=== PATIENT | female | born 1995 | race Caucasian/White ===

== ENCOUNTER 2018-05-19 10:34 | Emergency (ER) | payer OTHER ==
[~2018-05-19] VITALS: Ht 170.2 cm; Wt 55.8 kg
[2018-05-19 11:28] LABS: BASO # 0.1 x10^3/uL (0.0-0.2); BASO % 1 % (0-3); EOS # 0.1 x10^3/uL (0.0-0.7); EOS % 1 % (0-3); HEMATOCRIT 43.1 % (36.0-47.0); HEMOGLOBIN 14.6 g/dL (12.0-15.5); LYMPH # 2.3 x10^3/uL (1.0-4.8); LYMPH % 26 % (24-48); MEAN CORPUSCULAR HEMOGLOBIN 27 pg (25-35); MEAN CORPUSCULAR HGB CONC 34 g/dL (31-37); MEAN CORPUSCULAR VOLUME 79 fL (79-100); MONO # 0.6 x10^3/uL (0.0-1.1); MONO % 7 % (0-9); NEUT # 5.7 x10^3uL (1.8-7.7); NEUT % 65 % (31-73); PLATELET COUNT 278 x10^3/uL (140-400); RED BLOOD COUNT 5.47 x10^6/uL (3.50-5.40); RED CELL DISTRIBUTION WIDTH 15.3 % (11.5-14.5); WHITE BLOOD COUNT 8.9 x10^3/uL (4.0-11.0)
[2018-05-19 11:37] LABS: CALCIUM 9.1 mg/dL (8.5-10.1); CREATININE 0.5 mg/dL (0.6-1.0); GFR 155.7; MAGNESIUM 1.9 mg/dL (1.8-2.4); POTASSIUM 3.8 mmol/L (3.5-5.1)
[2018-05-19 12:21] LABS: BACTERIA,URINE MOD /HPF (0-FEW); BILIRUBIN,URINE NEG (NEG); CLARITY,URINE HAZY; COLOR,URINE YELLOW; GLUCOSE,URINE NEG (NEG); NITRITE,URINE NEG (NEG); UROBILINOGEN,URINE 0.2 mg/dL (0.2 mg/dL); WBC,URINE OCC /HPF (0-4)
[2018-05-19 12:22] LABS: SQUAMOUS EPITHELIAL CELL,UR MANY /LPF
--- NOTE | 2018-05-19 12:49 | RAD ---
EXAM: Obstetrics sonogram. HISTORY: Right adnexal pain. TECHNIQUE: Transabdominal and transvaginal sonographic imaging of the pelvis was performed. COMPARISON: None. FINDINGS: The uterus measures 8.3 x 4.7 x 3.8 cm. The uterus is retroverted. The endometrial stripe measures 10 mm in thickness. No intrauterine gestational sac is seen. The ovaries are normal in size and demonstrate normal blood flow. There is a 1.7 cm left ovarian follicular cyst. There is a suspected 1.2 cm complex right ovarian cyst, possibly a corpus luteum cyst. There is an ill-defined hypoechoic region adjacent to the right ovary. No free fluid is seen in this location. IMPRESSION: 1. No evidence of an intrauterine gestational sac. This is not expected at the reported beta hCG level of 220. There is an ill-defined small hypoechoic region adjacent to the right ovary. This is not typical in appearance for ectopic gestation. However, if there is clinical concern for ectopic gestation, correlation with serial beta hCG levels and short-term sonographic follow-up is recommended. 2. Small bilateral follicular cysts, one of which on the right it is slightly complex and may be a corpus luteum cyst. Electronically signed by: Viri Madsen MD (05/19/2018 12:45 PM) [id number]
[2018-05-19] MEDS ORDERED: PREN-2 PO (12:59)
--- NOTE | 2018-05-19 12:59 | PHYS DOC ---
Past History Past Medical History: No Pertinent History Past Surgical History: No Surgical History Smoking: Non-smoker Alcohol Use: None Drug Use: None Adult General Chief Complaint Chief Complaint: ABDOMINAL PAIN IN HPI HPI 22-year-old female presents with recent diagnosis of with report of increased right lower pelvic pain with associated vaginal bleeding/discharge. Patient reports 3 days ago she noticed some dark discharge. Patient was seen by PCP at [facility] with positive test. Patient denies trauma. Denies fever or chills. Patient reports last menstrual period approximately 6 weeks ago. Denies prior . Patient reports reading about spotting in and decided to present to the ER for further evaluation. Review of Systems Review of Systems Constitutional: Denies fever or chills [] Eyes: Denies change in visual acuity, redness, or eye pain [] HENT: Denies nasal congestion or sore throat [] Respiratory: Denies cough or shortness of breath [] Cardiovascular: Denies chest pain or palpitations GI: Right right lower abdominal pain; denies nausea, vomiting, or diarrhea [] : Denies dysuria or hematuria [] FOOD SAFETY SCIENTIST: with vaginal bleeding and "dark discharge" Musculoskeletal: Denies back pain or joint pain [] Integument: Denies rash or skin lesions [] Neurologic: Denies headache, focal weakness or sensory changes [] Complete systems were reviewed and found to be within normal limits, except as documented in this note. Allergies Allergies Allergies Coded Allergies Type Severity Reaction Last Updated Verified No Known Drug Allergies 05/19/18 No Physical Exam Physical Exam Constitutional: Well developed, well nourished, no acute distress, non-toxic appearance. [] HENT: Normocephalic, atraumatic, oropharynx moist Eyes: Conjunctiva normal, no discharge. [] Neck: Normal range of motion, no tenderness, supple, no stridor. [] Cardiovascular: Heart rate regular rhythm, no murmur [] Lungs & Thorax: Bilateral breath sounds clear to auscultation [] Abdomen: Soft, RLQ tenderness, negative McBurney point [] FOOD SAFETY SCIENTIST: Chaperoned RN, external genitalia normal, no CMT, moderate amount of blood and clot noted in vaginal vault, adnexal tenderness to palpation on right Skin: Warm, dry, no erythema, no rash. [] Back: No tenderness, no CVA tenderness. [] Extremities: No tenderness, ROM intact, no edema. [] Neurologic: Alert and oriented X 3, normal motor function, normal sensory function, no focal deficits noted. [] Psychologic: Affect normal, judgement normal, mood normal. [] Current Patient Data Vital Signs Vital Signs Date Time Temp Pulse Resp B/P (MAP) Pulse Ox O2 Delivery O2 Flow Rate FiO2 05/19/18 12:28 90 18 130/76 (94) 99 Room Air 05/19/18 10:46 98.1 Lab Results Laboratory Tests Test 05/19/18 11:12 05/19/18 11:43 White Blood Count 8.9 x10^3/uL (4.0-11.0) Red Blood Count 5.47 x10^6/uL (3.50-5.40) H Hemoglobin 14.6 g/dL (12.0-15.5) Hematocrit 43.1 % (36.0-47.0) Mean Corpuscular Volume 79 fL (79-100) Mean Corpuscular Hemoglobin 27 pg (25-35) Mean Corpuscular Hemoglobin Concent 34 g/dL (31-37) Red Cell Distribution Width 15.3 % (11.5-14.5) H Platelet Count 278 x10^3/uL (140-400) Neutrophils (%) (Auto) 65 % (31-73) Lymphocytes (%) (Auto) 26 % (24-48) Monocytes (%) (Auto) 7 % (0-9) Eosinophils (%) (Auto) 1 % (0-3) Basophils (%) (Auto) 1 % (0-3) Neutrophils # (Auto) 5.7 x10^3uL (1.8-7.7) Lymphocytes # (Auto) 2.3 x10^3/uL (1.0-4.8) Monocytes # (Auto) 0.6 x10^3/uL (0.0-1.1) Eosinophils # (Auto) 0.1 x10^3/uL (0.0-0.7) Basophils # (Auto) 0.1 x10^3/uL (0.0-0.2) Maternal Serum HCG Beta Subunit 220 mIU/mL (0-6) H Sodium Level 142 mmol/L (136-145) Potassium Level 3.8 mmol/L (3.5-5.1) Chloride Level 105 mmol/L (98-107) Carbon Dioxide Level 26 mmol/L (21-32) Anion Gap 11 (6-14) Blood Urea Nitrogen 9 mg/dL (7-20) Creatinine 0.5 mg/dL (0.6-1.0) L Estimated GFR (Cockcroft-Gault) 155.7 Glucose Level 86 mg/dL (70-99) Calcium Level 9.1 mg/dL (8.5-10.1) Magnesium Level 1.9 mg/dL (1.8-2.4) Urine Collection Type Unknown Urine Color Yellow Urine Clarity Hazy Urine pH 7.0 Urine Specific [place] 1.015 Urine Protein Neg (NEG-TRACE) Urine Glucose (UA) Neg mg/dL (NEG) Urine Ketones (Stick) Neg mg/dL (NEG) Urine Blood Large (NEG) Urine Nitrite Neg (NEG) Urine Bilirubin Neg (NEG) Urine Urobilinogen Dipstick 0.2 mg/dL (0.2 mg/dL) Urine Leukocyte Esterase Neg (NEG) Urine RBC 3-5 /HPF (0-2) Urine WBC Occ /HPF (0-4) Urine Squamous Epithelial Cells Many /LPF Urine Bacteria Mod /HPF (0-FEW) Urine Mucus Marked /LPF EKG EKG [] Radiology/Procedures Radiology/Procedures PROCEDURE: OB <14 WKS W/TV EXAM: Obstetrics sonogram. HISTORY: Right adnexal pain. TECHNIQUE: Transabdominal and transvaginal sonographic imaging of the pelvis was performed. COMPARISON: None. FINDINGS: The uterus measures 8.3 x 4.7 x 3.8 cm. The uterus is retroverted. The endometrial stripe measures 10 mm in thickness. No intrauterine gestational sac is seen. The ovaries are normal in size and demonstrate normal blood flow. There is a 1.7 cm left ovarian follicular cyst. There is a suspected 1.2 cm complex right ovarian cyst, possibly a corpus luteum cyst. There is an ill-defined hypoechoic region adjacent to the right ovary. No free fluid is seen in this location. IMPRESSION: 1. No evidence of an intrauterine gestational sac. This is not expected at the reported beta hCG level of 220. There is an ill-defined small hypoechoic region adjacent to the right ovary. This is not typical in appearance for ectopic gestation. However, if there is clinical concern for ectopic gestation, correlation with serial beta hCG levels and short-term sonographic follow-up is recommended. 2. Small bilateral follicular cysts, one of which on the right it is slightly complex and may be a corpus luteum cyst. Electronically signed by: Viri Madsen MD (05/19/2018 12:45 PM) [facility] Course & Med Decision Making Course & Med Decision Making Pertinent Labs and Imaging studies reviewed. (See chart for details) Patient presents with abdominal pain in with vaginal bleeding. Patient is a . Reports previously having some "dark discharge ". Patient denies concern for STDs. Pelvic exam performed with chlamydia and gonorrhea cultures pending. Wet mount negative. Labs obtained and posted to chart. Beta- HCG 200. Patient is Rh+. Ultrasound obtained without findings of intrauterine gestation. Hypo-echoic area noted to right adnexa. Cannot fully exclude ectopic . Patient given copy of CT results including beta-HCG level and Rh factor. Patient to follow with her PCP/CONTINUING EDUCATION INSTRUCTOR on Tuesday with repeat hCG level and possible future repeat ultrasound. Patient currently stable for discharge with outpatient follow-up with PCP/CONTINUING EDUCATION INSTRUCTOR. Discussed findings and plan with patient and family, who acknowledge understanding and agreement. Dragon Disclaimer Dragon Disclaimer This electronic medical record was generated, in whole or in part, using a voice recognition dictation system. Departure Departure: Impression: Primary Impression: Threatened miscarriage in early Disposition: 01 HOME, SELF-CARE Condition: STABLE Referrals: PCPNICK (PCP) Patient Instructions: Threatened Miscarriage, [id number] Additional Instructions: Make sure to follow up closely in the next 2-3 days with your doctor or CONTINUING EDUCATION INSTRUCTOR. You need to have your BHCG level rechecked. You may continue to have some vaginal bleeding or passage of blood clots. Return to ED for any worsening of symptoms or further concern. Scripts Vit #76/Iron,Carb/Fa (PRENATABS RX TABLET) 1 Each Tablet 1 TAB PO DAILY for , #30 TAB 0 Refills Prov: TANYA JO DO 05/19/18 TANYA JO DO May 19, 2018 12:59
[2018-05-19 13:38] VITALS: BP 131/80
[2018-05-22 13:13] LABS: CHLAMYDIA PROBE Negative (Negative)
== END 2018-05-19 13:39 | disposition home or self-care (01) ==
LOC: ER 10:34
DX: O20.0 Threatened abortion (principal); O34.81 Maternal care for other abnormalities of pelvic organs, first trimester; N83.01 Follicular cyst of right ovary; Z3A.00 Weeks of gestation of pregnancy not specified
CPT/HCPCS: 36415; 76801; 76817; 80048; 81001; 83735; 84702; 85025; 86900; 86901; 87491; 87591; 99284; Q0111

== ENCOUNTER 2018-06-19 22:47 | Emergency (ER) | payer OTHER ==
[~2018-06-19] VITALS: Ht 162.6 cm; Wt 54.4 kg
[~2018-06-19 22:47] MED LIST: PREN-2 PO
--- NOTE | 2018-06-19 23:49 | ED.ADGEN ---
Past History Past Medical History: No Pertinent History, Other Past Medical History Miscarry in 05/02 Past Surgical History: No Surgical History Smoking: Non-smoker Alcohol Use: None Drug Use: None Adult General Chief Complaint Chief Complaint "..I had a miscarry last month.. and now I am bleeding again.. and getting cramping.."..Hurting ghazala really bad down here on the right...".. " I think my period is starting again...but this pain is different..." HPI HPI Patient is a 22 year old female who presents with nausea, vomiting and abdomen cramping. Patient at pain is somewhat generalized localizes to right lower quadrant. Pt. follows at [place]. She recently miscarry in April. Patient denies any intake bad food. Patient denies any travel or specific ill contacts. Patient significant other has not been overseas recently. Patient has no history immunosuppression.. No history of STDs. There is no family history of colitis or Crohn's or inflammatory bowel disease. She states she did have a normal stool today. Review of Systems Review of Systems Constitutional: Denies fever or chills [] Eyes: Denies change in visual acuity, redness, or eye pain [] HENT: Denies nasal congestion or sore throat [] Respiratory: Denies cough or shortness of breath [] Cardiovascular: No additional information not addressed in HPI [] GI: Length of abdominal pain, nausea,. Denies vomiting, bloody stools or diarrhea [] : Denies dysuria or hematuria [] Musculoskeletal: Denies back pain or joint pain [] Integument: Denies rash or skin lesions [] Neurologic: Denies headache, focal weakness or sensory changes [] Endocrine: Denies polyuria or polydipsia [] All other systems were reviewed and found to be within normal limits, except as documented in this note. Family History Family History Noncontributory Current Medications Current Medications Current Medications Medications (Trade) Dose Ordered Sig/Hermes Start Time Stop Time Status Last Admin Dose Admin Famotidine (Pepcid Vial) 20 mg 1X ONCE 06/20/18 00:30 06/20/18 00:31 DC 06/20/18 00:13 20 MG Info (Do NOT chart on this entry -- for MONITORING) 1 each PRN DAILY PRN 06/20/18 00:15 06/20/18 03:26 DC Iohexol (Omnipaque 240 Mg/ml) 30 ml 1X ONCE 06/20/18 00:30 06/20/18 00:31 DC 06/20/18 01:27 30 ML Iohexol (Omnipaque 300 Mg/ml) 75 ml 1X ONCE 06/20/18 00:30 06/20/18 00:31 DC 06/20/18 01:28 75 ML Ketorolac Tromethamine (Toradol 30mg Vial) 30 mg 1X ONCE 06/20/18 03:00 06/20/18 03:01 DC 06/20/18 03:06 30 MG Lactated Ringer's 1,000 ml @ 1,000 mls/hr Q1H 06/20/18 00:30 06/20/18 01:29 DC 06/20/18 00:12 1,000 MLS/HR Magnesium Hydroxide (Milk Of Magnesia) 2,400 mg 1X ONCE 06/20/18 03:00 06/20/18 03:01 DC 06/20/18 03:06 2,400 MG Morphine Sulfate (Morphine 10mg Syringe) 10 mg 1X ONCE 06/20/18 00:30 06/20/18 00:31 DC 06/20/18 00:13 10 MG Ondansetron HCl (Zofran) 8 mg 1X ONCE 06/20/18 00:30 06/20/18 00:31 DC 06/20/18 00:13 8 MG Allergies Allergies Allergies Coded Allergies Type Severity Reaction Last Updated Verified No Known Drug Allergies 05/19/18 No Physical Exam Physical Exam Constitutional: Well developed, well nourished, moderately acute distress, non- toxic appearance. [] HENT: Normocephalic, atraumatic, bilateral external ears normal, oropharynx moist, no oral exudates, nose normal. [] Eyes: PERRLA, EOMI, conjunctiva normal, no discharge. Glasses Neck: Normal range of motion, no tenderness, supple, no stridor. [] Cardiovascular:Heart rate regular rhythm, no murmur [] Lungs & Thorax: Bilateral breath sounds clear to auscultation [] Abdomen: Bowel sounds increased, soft, generalized tenderness, no masses, no pulsatile masses. Some rebound to right lower quadrant.. Patient abdomen is distended. Presently patient declines rectal vaginal exam Skin: Warm, dry, no erythema, no rash. [] Back: No tenderness, no CVA tenderness. [] Extremities: No tenderness, no cyanosis, no clubbing, ROM intact, no edema. [] . Mild psoas on the right side Neurologic: Alert and oriented X 3, normal motor function, normal sensory function, no focal deficits noted. [] Psychologic: Affect anxious, judgement normal, mood normal. [] Current Patient Data Vital Signs Vital Signs Date Time Temp Pulse Resp B/P (MAP) Pulse Ox O2 Delivery O2 Flow Rate FiO2 06/20/18 03:09 95 18 109/76 (87) 99 Room Air 06/19/18 23:17 98.3 Lab Results Laboratory Tests Test 06/19/18 23:12 06/19/18 23:22 06/19/18 23:39 Urine Collection Type Void Urine Color Yellow Urine Clarity Clear Urine pH 8.5 Urine Specific [place] 1.020 Urine Protein Neg (NEG-TRACE) Urine Glucose (UA) Neg mg/dL (NEG) Urine Ketones (Stick) Trace mg/dL (NEG) Urine Blood Large (NEG) Urine Nitrite Neg (NEG) Urine Bilirubin Neg (NEG) Urine Urobilinogen Dipstick 0.2 mg/dL (0.2 mg/dL) Urine Leukocyte Esterase Neg (NEG) Urine RBC 3-5 /HPF (0-2) Urine WBC Occ /HPF (0-4) Urine Squamous Epithelial Cells Few /LPF Urine Bacteria 0 /HPF (0-FEW) Urine Opiates Screen Neg (NEG) Urine Methadone Screen Neg (NEG) Urine Barbiturates Neg (NEG) Urine Phencyclidine Screen Neg (NEG) Urine Amphetamine/Methamphetamine Neg (NEG) Urine Benzodiazepines Screen Neg (NEG) Urine Cocaine Screen Neg (NEG) Urine Cannabinoids Screen Neg (NEG) Urine Ethyl Alcohol Neg (NEG) POC Urine HCG, Qualitative hcg negative (Negative) White Blood Count 12.9 x10^3/uL (4.0-11.0) H Red Blood Count 5.00 x10^6/uL (3.50-5.40) Hemoglobin 13.7 g/dL (12.0-15.5) Hematocrit 41.0 % (36.0-47.0) Mean Corpuscular Volume 82 fL (79-100) Mean Corpuscular Hemoglobin 27 pg (25-35) Mean Corpuscular Hemoglobin Concent 33 g/dL (31-37) Red Cell Distribution Width 15.4 % (11.5-14.5) H Platelet Count 230 x10^3/uL (140-400) Neutrophils (%) (Auto) 83 % (31-73) H Lymphocytes (%) (Auto) 11 % (24-48) L Monocytes (%) (Auto) 6 % (0-9) Eosinophils (%) (Auto) 0 % (0-3) Basophils (%) (Auto) 1 % (0-3) Neutrophils # (Auto) 10.7 x10^3uL (1.8-7.7) H Lymphocytes # (Auto) 1.4 x10^3/uL (1.0-4.8) Monocytes # (Auto) 0.7 x10^3/uL (0.0-1.1) Eosinophils # (Auto) 0.0 x10^3/uL (0.0-0.7) Basophils # (Auto) 0.1 x10^3/uL (0.0-0.2) Prothrombin Time 11.9 SEC (9.4-11.4) H Prothrombin Time INR 1.2 (0.9-1.1) H PTT 22 SEC (23-33) L Maternal Serum HCG Beta Subunit < 1 mIU/mL (0-6) Sodium Level 141 mmol/L (136-145) Potassium Level 3.6 mmol/L (3.5-5.1) Chloride Level 106 mmol/L (98-107) Carbon Dioxide Level 26 mmol/L (21-32) Anion Gap 9 (6-14) Blood Urea Nitrogen 7 mg/dL (7-20) Creatinine 0.6 mg/dL (0.6-1.0) Estimated GFR (Cockcroft-Gault) 126.2 Glucose Level 102 mg/dL (70-99) H Calcium Level 9.1 mg/dL (8.5-10.1) Total Bilirubin 0.2 mg/dL (0.2-1.0) Direct Bilirubin 0.1 mg/dL (0.0-0.2) Aspartate Amino Transferase (AST) 14 U/L (15-37) L Alanine Aminotransferase (ALT) 18 U/L (14-59) Alkaline Phosphatase 67 U/L (46-116) Total Protein 7.2 g/dL (6.4-8.2) Albumin 4.0 g/dL (3.4-5.0) Lipase 85 U/L (73-393) EKG EKG [] Radiology/Procedures Radiology/Procedures My interpretation of abdomen film shows no acute cardiopulmonary findings. No free air in the diaphragm. There is increased stool throughout the colon. CT head shows constipation, does have some thickening of bowel wall suggestive of colitis. No acute surgical processes detected. See formal report when available [] Course & Med Decision Making Course & Med Decision Making Pertinent Labs and Imaging studies reviewed. (See chart for details) Patient's stay on a clear fluid diet only for the next 2 days. No milk products or solids. Must allow bowel rest. Recommend follow-up colonoscopy to evaluate for colitis.. Patient's pain went from severe, to 6 out of 10 mid visit and at discharge 1-2 out of 10. Must follow-up. Return if any concerns. Review ED visit labs and x-rays with primary [] Final Impression Final Impression 1. Abdomen Pain Cramping- Localization Rt. lower 2. Hx Miscarry , 1- 1 month ago 3. Leukocytosis Dragon Disclaimer Dragon Disclaimer This electronic medical record was generated, in whole or in part, using a voice recognition dictation system. Dragon Disclaimer This chart was dictated in whole or in part using Voice Recognition software in a busy, high-work load, and often noisy Emergency Department environment. It may contain unintended and wholly unrecognized errors or omissions. Discharge Summary Visit Information Final Diagnosis Problems Medical Problems: (1) Colitis Status: Acute (2) Constipation Status: Acute (3) Pain in the abdomen Status: Acute Brief Hospital Course Allergies Allergies Coded Allergies Type Severity Reaction Last Updated Verified No Known Drug Allergies 05/19/18 No Vital Signs Vital Signs Date Time Temp Pulse Resp B/P (MAP) Pulse Ox O2 Delivery O2 Flow Rate FiO2 06/20/18 03:09 95 18 109/76 (87) 99 Room Air 06/19/18 23:17 98.3 Lab Results Laboratory Tests Test 06/19/18 23:12 06/19/18 23:22 06/19/18 23:39 Urine Collection Type Void Urine Color Yellow Urine Clarity Clear Urine pH 8.5 Urine Specific [place] 1.020 Urine Protein Neg (NEG-TRACE) Urine Glucose (UA) Neg mg/dL (NEG) Urine Ketones (Stick) Trace mg/dL (NEG) Urine Blood Large (NEG) Urine Nitrite Neg (NEG) Urine Bilirubin Neg (NEG) Urine Urobilinogen Dipstick 0.2 mg/dL (0.2 mg/dL) Urine Leukocyte Esterase Neg (NEG) Urine RBC 3-5 /HPF (0-2) Urine WBC Occ /HPF (0-4) Urine Squamous Epithelial Cells Few /LPF Urine Bacteria 0 /HPF (0-FEW) Urine Opiates Screen Neg (NEG) Urine Methadone Screen Neg (NEG) Urine Barbiturates Neg (NEG) Urine Phencyclidine Screen Neg (NEG) Urine Amphetamine/Methamphetamine Neg (NEG) Urine Benzodiazepines Screen Neg (NEG) Urine Cocaine Screen Neg (NEG) Urine Cannabinoids Screen Neg (NEG) Urine Ethyl Alcohol Neg (NEG) Bedside Urine HCG, Qualitative hcg negative (Negative) White Blood Count 12.9 x10^3/uL (4.0-11.0) Red Blood Count 5.00 x10^6/uL (3.50-5.40) Hemoglobin 13.7 g/dL (12.0-15.5) Hematocrit 41.0 % (36.0-47.0) Mean Corpuscular Volume 82 fL (79-100) Mean Corpuscular Hemoglobin 27 pg (25-35) Mean Corpuscular Hemoglobin Concent 33 g/dL (31-37) Red Cell Distribution Width 15.4 % (11.5-14.5) Platelet Count 230 x10^3/uL (140-400) Neutrophils (%) (Auto) 83 % (31-73) Lymphocytes (%) (Auto) 11 % (24-48) Monocytes (%) (Auto) 6 % (0-9) Eosinophils (%) (Auto) 0 % (0-3) Basophils (%) (Auto) 1 % (0-3) Neutrophils # (Auto) 10.7 x10^3uL (1.8-7.7) Lymphocytes # (Auto) 1.4 x10^3/uL (1.0-4.8) Monocytes # (Auto) 0.7 x10^3/uL (0.0-1.1) Eosinophils # (Auto) 0.0 x10^3/uL (0.0-0.7) Basophils # (Auto) 0.1 x10^3/uL (0.0-0.2) Prothrombin Time 11.9 SEC (9.4-11.4) Prothromb Time International Ratio 1.2 (0.9-1.1) Activated Partial Thromboplast Time 22 SEC (23-33) Maternal Serum HCG Beta Subunit < 1 mIU/mL (0-6) Sodium Level 141 mmol/L (136-145) Potassium Level 3.6 mmol/L (3.5-5.1) Chloride Level 106 mmol/L (98-107) Carbon Dioxide Level 26 mmol/L (21-32) Anion Gap 9 (6-14) Blood Urea Nitrogen 7 mg/dL (7-20) Creatinine 0.6 mg/dL (0.6-1.0) Estimated GFR (Cockcroft-Gault) 126.2 Glucose Level 102 mg/dL (70-99) Calcium Level 9.1 mg/dL (8.5-10.1) Total Bilirubin 0.2 mg/dL (0.2-1.0) Direct Bilirubin 0.1 mg/dL (0.0-0.2) Aspartate Amino Transf (AST/SGOT) 14 U/L (15-37) Alanine Aminotransferase (ALT/SGPT) 18 U/L (14-59) Alkaline Phosphatase 67 U/L (46-116) Total Protein 7.2 g/dL (6.4-8.2) Albumin 4.0 g/dL (3.4-5.0) Lipase 85 U/L (73-393) Brief Hospital Course Ms. Holt is a 22 old female who presented with abd. pain. Dx. constipation , possible colitis. Discharge Information Condition at Discharge: Improved, Stable Disposition/Orders: D/C to Home Dischare Medications Current Medications Lactated Ringer's 1,000 ml @ 1,000 mls/hr Q1H IV Last administered on at 00:12; Admin Dose 1,000 MLS/HR; Start 06/20/18 at 00:30; Stop 06/20/18 at 01: 29; Status DC Ondansetron HCl (Zofran) 8 mg 1X ONCE IV Last administered on 06/20/18at 00:13; Admin Dose 8 MG; Start 06/20/18 at 00:30; Stop 06/20/18 at 00:31; Status DC Famotidine (Pepcid Vial) 20 mg 1X ONCE IVP Last administered on 06/20/18at 00:13 ; Admin Dose 20 MG; Start 06/20/18 at 00:30; Stop 06/20/18 at 00:31; Status DC Morphine Sulfate (Morphine 10mg Syringe) 10 mg 1X ONCE SQ Last administered on 06/20/18at 00:13; Admin Dose 10 MG; Start 06/20/18 at 00:30; Stop 06/20/18 at 00: 31; Status DC Iohexol (Omnipaque 240 Mg/ml) 30 ml 1X ONCE PO Last administered on 06/20/18at 01:27; Admin Dose 30 ML; Start 06/20/18 at 00:30; Stop 06/20/18 at 00:31; Status DC Iohexol (Omnipaque 300 Mg/ml) 75 ml 1X ONCE IV Last administered on 06/20/18at 01:28; Admin Dose 75 ML; Start 06/20/18 at 00:30; Stop 06/20/18 at 00:31; Status DC Info (Do NOT chart on this entry -- for MONITORING) 1 each PRN DAILY PRN MC SEE COMMENTS; Start 06/20/18 at 00:15; Stop 06/20/18 at 03:26; Status DC Magnesium Hydroxide (Milk Of Magnesia) 2,400 mg 1X ONCE PO Last administered on 06/20/18at 03:06; Admin Dose 2,400 MG; Start 06/20/18 at 03:00; Stop 06/20/18 at 03:01; Status DC Ketorolac Tromethamine (Toradol 30mg Vial) 30 mg 1X ONCE IV Last administered on 06/20/18at 03:06; Admin Dose 30 MG; Start 06/20/18 at 03:00; Stop 06/20/18 at 03: 01; Status DC Active Scripts Active Prenatabs Rx Tablet ( Vit #76/Iron,Carb/Fa) 1 Each Tablet 1 Tab PO DAILY SEVERO SHEPPARD MD Jun 19, 2018 23:49
[2018-06-20 00:10] LABS: BASO # 0.1 x10^3/uL (0.0-0.2); BASO % 1 % (0-3); EOS % 0 % (0-3); HEMOGLOBIN 13.7 g/dL (12.0-15.5); LYMPH # 1.4 x10^3/uL (1.0-4.8); LYMPH % 11 % (24-48); MEAN CORPUSCULAR HEMOGLOBIN 27 pg (25-35); MEAN CORPUSCULAR HGB CONC 33 g/dL (31-37); MEAN CORPUSCULAR VOLUME 82 fL (79-100); MONO # 0.7 x10^3/uL (0.0-1.1); MONO % 6 % (0-9); NEUT # 10.7 x10^3uL (1.8-7.7); NEUT % 83 % (31-73); PLATELET COUNT 230 x10^3/uL (140-400); RED CELL DISTRIBUTION WIDTH 15.4 % (11.5-14.5); WHITE BLOOD COUNT 12.9 x10^3/uL (4.0-11.0)
[2018-06-20] MEDS ORDERED: CONTRAST GIVEN MC PRN (00:15)
[2018-06-20 00:24] LABS: BACTERIA,URINE 0 /HPF (0-FEW); BILIRUBIN,URINE NEG (NEG); CLARITY,URINE CLEAR; COLOR,URINE YELLOW; GLUCOSE,URINE NEG (NEG); NITRITE,URINE NEG (NEG); SQUAMOUS EPITHELIAL CELL,UR FEW /LPF; UROBILINOGEN,URINE 0.2 mg/dL (0.2 mg/dL); WBC,URINE OCC /HPF (0-4)
[2018-06-20] MEDS ORDERED: MORPHINE SULFATE 10 MG/ML SYRINGE. SQ ONE (00:30)
[2018-06-20] MEDS ORDERED: IOHEXOL 240 MG/ML 50ML VIAL. PO ONE (00:30)
[2018-06-20] MEDS ORDERED: ONDANSETRON PF 4 MG/2 ML VIAL. IV ONE (00:30)
[2018-06-20] MEDS ORDERED: FAMOTIDINE 20 MG/2 ML VIAL IVP ONE (00:30)
[2018-06-20] MEDS ORDERED: IOHEXOL 300 MG/ML 75 ML VIAL. IV ONE (00:30)
[2018-06-20] MEDS ORDERED: IV RINGERS SOLUTION,LACTATED 1,000 ML IV SCH (00:30)
[2018-06-20 00:31] LABS: BARBITURATES NEG (NEG); BENZODIAZEPINES NEG (NEG); CANNABINOIDS NEG (NEG); COCAINE NEG (NEG); METHADONE NEG (NEG); OPIATES NEG (NEG); PHENCYCLIDINE NEG (NEG)
[2018-06-20 00:32] LABS: CALCIUM 9.1 mg/dL (8.5-10.1); CREATININE 0.6 mg/dL (0.6-1.0); DIRECT BILIRUBIN 0.1 mg/dL (0.0-0.2); GFR 126.2; POTASSIUM 3.6 mmol/L (3.5-5.1); TOTAL BILIRUBIN 0.2 mg/dL (0.2-1.0); TOTAL PROTEIN 7.2 g/dL (6.4-8.2)
[2018-06-20 00:34] LABS: AMPHETAMINE/METHAMPHETAMINE NEG (NEG)
--- NOTE | 2018-06-20 01:12 | RAD ---
EXAM: Two view abdomen with one view chest HISTORY: Nausea, right lower quadrant pain. COMPARISON: None. FINDINGS: A frontal view of the chest and supine/upright views of the abdomen are obtained. There are no confluent infiltrates. There is no pneumothorax or pleural effusion. The heart is not enlarged. There is no pneumoperitoneum. There are no distended small bowel loops or significant air-fluid levels. There is gas distally. IMPRESSION: 1. No confluent infiltrates. 2. No evidence of obstruction. Electronically signed by: Kym Candelaria MD (06/20/2018 1:07 AM) [id number]
--- NOTE | 2018-06-20 02:15 | RAD ---
EXAM: CT ABDOMEN/PELVIS WITH CONTRAST. HISTORY: Right lower quadrant pain and nausea. TECHNIQUE: Computed tomography of the abdomen and pelvis was performed after the intravenous administration of 75 mL Omnipaque 300. COMPARISON: None. FINDINGS: Lung windows through the visualized portions of the bases reveal mild atelectasis. Bone windows reveal no suspicious lesions. The transverse and left colon are decompressed but there appears to be mild wall thickening. There is feculent material within the distal ileum without dilatation or a clear cause for obstruction. The appendix is not inflamed. The liver, gallbladder, pancreas, adrenal glands, kidneys and spleen are unremarkable. There are no pathologically enlarged lymph nodes. IMPRESSION: 1. Correlate for mild left colitis. 2. Feculent material within the distal small bowel without clear obstruction. This can be a normal finding or reflect constipation. *One or more of the following individualized dose reduction techniques were utilized for this examination: 1. Automated exposure control. 2. Adjustment of the mA and/or kV according to patient size. 3. Use of iterative reconstruction technique. Electronically signed by: Kym Candelaria MD (06/20/2018 2:11 AM) [facility]
[2018-06-20] MEDS ORDERED: KETOROLAC 30 MG/ML VIAL. IV ONE (03:00)
[2018-06-20] MEDS ORDERED: MAGNESIUM HYDROXIDE 2,400 MG/30 ML ORAL.SUSP. PO ONE (03:00)
[2018-06-20 03:09] VITALS: BP 109/76
== END 2018-06-20 03:26 | disposition home or self-care (01) ==
LOC: ER 22:47
DX: K52.9 Noninfective gastroenteritis and colitis, unspecified (principal); K59.00 Constipation, unspecified; D72.829 Elevated white blood cell count, unspecified
CPT/HCPCS: 36415; 74022; 74177; 80048; 80076; 80307; 81001; 81025; 83690; 84702; 85025; 85610; 85730; 96372; 96374; 96375; 99284; J1885; J2270; J2405; J3490; J7120; Q9966; Q9967

== ENCOUNTER 2018-09-26 17:16 | Emergency (ER) | payer OTHER ==
[~2018-09-26] VITALS: Ht 162.6 cm; Wt 55.8 kg
[2018-09-26] MEDS: IV NORMAL SALINE 1,000ML 1,000 ML IV SCH (17:36)
--- NOTE | 2018-09-26 17:54 | PHYS DOC ---
Past History Past Medical History: No Pertinent History, Other (KATHIE MORATAYA DO) Past Surgical History: No Surgical History (KATHIE MORATAYA DO) Smoking: Non-smoker Alcohol Use: None Drug Use: None (KATHIE MORATAYA DO) Adult General Chief Complaint Chief Complaint: VAGINAL BLEEDING HPI HPI Patient is a 22-year-old female presents with nausea and vomiting that started yesterday, became worse today. She has had vaginal bleeding for the past 5 days. She is , but with an empty sac per her report. She is followed up by OB [place]. Her last menstrual. Was the beginning of July. She reports that she is undergoing a miscarriage and that this is being followed by her OB. Bleeding has been getting worse since last . She was seen in follow-up yesterday, and the empty sac she reports on ultrasound appears to be getting smaller. Patient had a previous miscarriage in May 2018. This is her second . Patient is uncertain as to what her blood type is.[] (KATHIE MORATAYA DO) Review of Systems Review of Systems Constitutional: Denies fever or chills [] Eyes: Denies change in visual acuity, redness, or eye pain [] HENT: Denies nasal congestion or sore throat [] Respiratory: Denies cough or shortness of breath [] Cardiovascular: No chest pain or palpitations[] GI: See history of present illness[] : Denies dysuria or hematuria [] Musculoskeletal: Denies back pain or joint pain [] Integument: Denies rash or skin lesions [] Neurologic: Denies headache, focal weakness or sensory changes [] Endocrine: Denies polyuria or polydipsia [] All other systems were reviewed and found to be within normal limits, except as documented in this note. (KATHIE MORATAYA DO) Current Medications Current Medications Current Medications Medications (Trade) Dose Ordered Sig/Hermes Start Time Stop Time Status Last Admin Dose Admin Sodium Chloride 1,000 ml @ 1,000 mls/hr Q1H 09/26/18 17:36 09/26/18 18:35 (KATHIE MORATAYA DO) Allergies Allergies Allergies Coded Allergies Type Severity Reaction Last Updated Verified No Known Drug Allergies 05/19/18 No (KATHIE MORATAYA DO) Physical Exam Physical Exam Constitutional: Well developed, well nourished, pale, mild to moderate discomfort. [] HENT: Normocephalic, atraumatic, bilateral external ears normal, oropharynx moist, no oral exudates, nose normal. [] Eyes: PERRLA, EOMI, conjunctiva normal, no discharge. [] Neck: Normal range of motion, no tenderness, supple, no stridor. [] Cardiovascular:Heart rate regular rhythm, no murmur [] Lungs & Thorax: Bilateral breath sounds clear to auscultation [] Abdomen: Bowel sounds normal, soft, no tenderness, no masses, no pulsatile masses. [] Skin: Warm, dry, no erythema, no rash. [] Back: No tenderness, no CVA tenderness. [] Extremities: No tenderness, no cyanosis, no clubbing, ROM intact, no edema. [] Neurologic: Alert and oriented X 3, normal motor function, normal sensory function, no focal deficits noted. [] Psychologic: Affect normal, judgement normal, mood normal. [] (KATHIE MORATAYA DO) EKG EKG [] (KATHIE MORATAYA DO) Radiology/Procedures Radiology/Procedures [] (KATHIE MORATAYA DO) Radiology/[place] [id number] IMAGING REPORT Signed PATIENT: MECHE ROTHMAN ACCOUNT: [id number] : 1995 LOCATION: ER AGE: 22 SEX: F EXAM STATUS: REG ER ORD. PHYSICIAN: KATHIE MORATAYA DO REASON: , vaginal bleeding PROCEDURE: OB <14 WKS OB ultrasound less than 14 weeks to include transabdominal and transvaginal imaging 09/26/2018 CLINICAL HISTORY: First trimester with vaginal bleeding. TECHNIQUE: Using the distended urinary bladder as a sonographic window, a real-time ultrasound examination of the pelvis was performed. Additionally in an attempt to better evaluate the uterus and adnexa, a transvaginal ultrasound study was performed. Multiple images were obtained. FINDINGS: The uterus is normal in size. It measures 9.1 x 6.1 x 4.0 cm in longitudinal, transverse, and AP dimensions. The endometrial echo complex measures 8 mm in thickness which is within normal limits. No gestational sac is seen within the uterus. The cervical canal is prominent with a hypoechoic area seen which may represent hemorrhage. This measures 1.2 cm in thickness. Both ovaries are within normal limits in size and echogenicity. The right ovary measures 4.4 x 2.6 x 2.4 cm in size.The left ovary measures 3.9 x 2.0 x 1.8 cm in size. No adnexal mass is seen. No free fluid is noted. IMPRESSION: No IUP is seen. The above ultrasound findings could be seen with very IUP, missed spontaneous or possibly due to an occult ectopic . Clinical correlation and correlation with patient's serial beta hCG level is recommended. Electronically signed by: Nestor Mark MD (09/26/2018 9:12 PM) [facility] DICTATED AND SIGNED BY: NESTOR MARK MD DATE: 09/26/182111 CC: KATHIE MORATAYA DO; SEVERO SHEPPARD MD; PCP,NO ~ (SEVERO SHEPPARD MD) Course & Med Decision Making Course & Med Decision Making Pertinent Labs and Imaging studies reviewed. (See chart for details) ED course: Patient arrived, was placed in bed, in tolerated exam well. Patient was noted to be hypotensive initially so IV access was established, fluids were started. Type and screen was obtained. Patient care was endorsed to the night physician at 1800 with laboratory and imaging pending.[] (KATHIE MORATAYA DO) Course & Med Decision Making Pelvic exam. Os closing. Products of conception in vaginal canal. Sent for eval. Pt. to follow up cultures and repeat B-HCG in 3 days. Tylenol for pain. Return if any concerns. Risks of Ectopic discussed. Must review ED work up with [facility]. Cultures must be followed up. Impression : 1. Suspect Completed Miscarry 2. Mild Leukocytosis 13.O 3. BHCG = 9317 4. Blood Type A + (SEVERO SHEPPARD MD) Dragon Disclaimer Dragon Disclaimer This electronic medical record was generated, in whole or in part, using a voice recognition dictation system. (KATHIE MORATAYA DO) Departure Departure: Referrals: PCP,NO (PCP) Discharge Summary Visit Information Final Diagnosis Problems Medical Problems: (1) Threatened Status: Acute (SEVERO SHEPPARD MD) Brief Hospital Course Allergies Allergies Coded Allergies Type Severity Reaction Last Updated Verified No Known Drug Allergies 05/19/18 No Vital Signs Vital Signs Date Time Temp Pulse Resp B/P (MAP) Pulse Ox O2 Delivery O2 Flow Rate FiO2 09/26/18 21:55 83 97/50 (66) 98 Room Air 09/26/18 19:53 20 09/26/18 17:20 98.4 Lab Results Laboratory Tests Test 09/26/18 17:30 09/26/18 17:36 09/26/18 18:04 White Blood Count 13.0 x10^3/uL (4.0-11.0) Red Blood Count 5.16 x10^6/uL (3.50-5.40) Hemoglobin 14.4 g/dL (12.0-15.5) Hematocrit 43.0 % (36.0-47.0) Mean Corpuscular Volume 83 fL (79-100) Mean Corpuscular Hemoglobin 28 pg (25-35) Mean Corpuscular Hemoglobin Concent 33 g/dL (31-37) Red Cell Distribution Width 12.8 % (11.5-14.5) Platelet Count 262 x10^3/uL (140-400) Neutrophils (%) (Auto) 89 % (31-73) Lymphocytes (%) (Auto) 7 % (24-48) Monocytes (%) (Auto) 4 % (0-9) Eosinophils (%) (Auto) 0 % (0-3) Basophils (%) (Auto) 0 % (0-3) Neutrophils # (Auto) 11.5 x10^3uL (1.8-7.7) Lymphocytes # (Auto) 0.9 x10^3/uL (1.0-4.8) Monocytes # (Auto) 0.5 x10^3/uL (0.0-1.1) Eosinophils # (Auto) 0.0 x10^3/uL (0.0-0.7) Basophils # (Auto) 0.0 x10^3/uL (0.0-0.2) Prothrombin Time 12.1 SEC (9.4-11.4) Prothromb Time International Ratio 1.2 (0.9-1.1) Activated Partial Thromboplast Time 24 SEC (23-33) Maternal Serum HCG Beta Subunit 9317 mIU/mL (0-6) Sodium Level 141 mmol/L (136-145) Potassium Level 3.8 mmol/L (3.5-5.1) Chloride Level 105 mmol/L (98-107) Carbon Dioxide Level 24 mmol/L (21-32) Anion Gap 12 (6-14) Blood Urea Nitrogen 11 mg/dL (7-20) Creatinine 0.5 mg/dL (0.6-1.0) Estimated GFR (Cockcroft-Gault) 155.7 Glucose Level 128 mg/dL (70-99) Calcium Level 9.6 mg/dL (8.5-10.1) Magnesium Level 1.8 mg/dL (1.8-2.4) Total Bilirubin 0.4 mg/dL (0.2-1.0) Direct Bilirubin 0.1 mg/dL (0.0-0.2) Aspartate Amino Transf (AST/SGOT) 14 U/L (15-37) Alanine Aminotransferase (ALT/SGPT) 16 U/L (14-59) Alkaline Phosphatase 66 U/L (46-116) Total Protein 7.6 g/dL (6.4-8.2) Albumin 4.1 g/dL (3.4-5.0) Serum Test, Qualitative Positive (NEG) Urine Collection Type Unknown Urine Color Brown Urine Clarity Turbid Urine pH 5.5 Urine Specific Thomas >=1.030 Urine Protein 100 mg/dl (NEG-TRACE) Urine Glucose (UA) Neg mg/dL (NEG) Urine Ketones (Stick) >=160 mg/dL (NEG) Urine Blood Large (NEG) Urine Nitrite Neg (NEG) Urine Bilirubin Neg (NEG) Urine Urobilinogen Dipstick 0.2 mg/dL (0.2 mg/dL) Urine Leukocyte Esterase Neg (NEG) Urine RBC Tntc /HPF (0-2) Urine WBC 1-4 /HPF (0-4) Urine Squamous Epithelial Cells Few /LPF Urine Bacteria Few /HPF (0-FEW) Urine Mucus Slight /LPF Brief Hospital Course Ms. Rothman is a 22 old female who presented with vaginal bleeding- suspect spontaneous . Must follow-up beta-hCG in 3 days. Follow-up cultures that are pending. Return if any concerns. (SEVERO SHEPPARD MD) Discharge Information Condition at Discharge: Improved, Stable Disposition/Orders: D/C to Home Dischare Medications Current Medications Sodium Chloride 1,000 ml @ 1,000 mls/hr Q1H IV Last administered on 09/26/18at 17:36; Start 09/26/18 at 17:36; Stop 09/26/18 at 18:35; Status DC Oxycodone/ Acetaminophen (Percocet 5/325) 2 tab 1X ONCE PO Last administered on 09/26/18at 18:36; Start 09/26/18 at 18:30; Stop 09/26/18 at 18:31; Status DC Lactated Ringer's 1,000 ml @ 1,000 mls/hr 1X ONCE IV Last administered on 09/26/18at 19:04; Start 09/26/18 at 18:45; Stop 09/26/18 at 19:44; Status DC Active Scripts Active Prenatabs Rx Tablet ( Vit #76/Iron,Carb/Fa) 1 Each Tablet 1 Tab PO DAILY (SEVERO SHEPPARD MD) Dragon Disclaimer This chart was dictated in whole or in part using Voice Recognition software in a busy, high-work load, and often noisy Emergency Department environment. It may contain unintended and wholly unrecognized errors or omissions. (SEVERO SHEPPARD MD) KATHIE MORATAYA DO September 26, 2018 17:54 SEVERO SHEPPARD MD September 27, 2018 01:49
[2018-09-26 17:55] LABS: BASO % 0 % (0-3); EOS % 0 % (0-3); HEMOGLOBIN 14.4 g/dL (12.0-15.5); LYMPH # 0.9 x10^3/uL (1.0-4.8); LYMPH % 7 % (24-48); MEAN CORPUSCULAR HEMOGLOBIN 28 pg (25-35); MEAN CORPUSCULAR HGB CONC 33 g/dL (31-37); MEAN CORPUSCULAR VOLUME 83 fL (79-100); MONO # 0.5 x10^3/uL (0.0-1.1); MONO % 4 % (0-9); NEUT # 11.5 x10^3uL (1.8-7.7); NEUT % 89 % (31-73); PLATELET COUNT 262 x10^3/uL (140-400); RED BLOOD COUNT 5.16 x10^6/uL (3.50-5.40); RED CELL DISTRIBUTION WIDTH 12.8 % (11.5-14.5)
[2018-09-26 18:03] LABS: PREG TEST PT QUAL POSITIVE (NEG)
[2018-09-26 18:13] LABS: ALBUMIN 4.1 g/dL (3.4-5.0); CALCIUM 9.6 mg/dL (8.5-10.1); CREATININE 0.5 mg/dL (0.6-1.0); DIRECT BILIRUBIN 0.1 mg/dL (0.0-0.2); GFR 155.7; MAGNESIUM 1.8 mg/dL (1.8-2.4); POTASSIUM 3.8 mmol/L (3.5-5.1); TOTAL BILIRUBIN 0.4 mg/dL (0.2-1.0); TOTAL PROTEIN 7.6 g/dL (6.4-8.2)
[2018-09-26] MEDS: oxyCODONE/APAP 5/325 1 TAB TABLET PO ONE (18:36)
[2018-09-26 18:43] LABS: BILIRUBIN,URINE NEG (NEG); CLARITY,URINE TURBID; COLOR,URINE BROWN; GLUCOSE,URINE NEG (NEG); NITRITE,URINE NEG (NEG); UROBILINOGEN,URINE 0.2 mg/dL (0.2 mg/dL)
[2018-09-26 18:44] LABS: BACTERIA,URINE FEW /HPF (0-FEW); RBC,URINE TNTC /HPF (0-2); SQUAMOUS EPITHELIAL CELL,UR FEW /LPF
[2018-09-26] MEDS: IV RINGERS SOLUTION,LACTATED 1,000 ML IV ONE (19:04)
--- NOTE | 2018-09-26 21:16 | RAD ---
OB ultrasound less than 14 weeks to include transabdominal and transvaginal imaging 09/26/2018 CLINICAL HISTORY: First trimester with vaginal bleeding. TECHNIQUE: Using the distended urinary bladder as a sonographic window, a real-time ultrasound examination of the pelvis was performed. Additionally in an attempt to better evaluate the uterus and adnexa, a transvaginal ultrasound study was performed. Multiple images were obtained. FINDINGS: The uterus is normal in size. It measures 9.1 x 6.1 x 4.0 cm in longitudinal, transverse, and AP dimensions. The endometrial echo complex measures 8 mm in thickness which is within normal limits. No gestational sac is seen within the uterus. The cervical canal is prominent with a hypoechoic area seen which may represent hemorrhage. This measures 1.2 cm in thickness. Both ovaries are within normal limits in size and echogenicity. The right ovary measures 4.4 x 2.6 x 2.4 cm in size.The left ovary measures 3.9 x 2.0 x 1.8 cm in size. No adnexal mass is seen. No free fluid is noted. IMPRESSION: No IUP is seen. The above ultrasound findings could be seen with very IUP, missed spontaneous or possibly due to an occult ectopic . Clinical correlation and correlation with patient's serial beta hCG level is recommended. Electronically signed by: Nestor Mark MD (09/26/2018 9:12 PM) [facility]
[2018-09-26 21:55] VITALS: BP 97/50
[2018-09-27 14:07] LABS: CHLAMYDIA PROBE Negative (Negative)
--- NOTE | 2018-09-29 09:07 | PATHOLOGY ---
[facility] Accession Number: [id number] . 01 Material submitted: . product of conception - VAGINAL SPECIMEN-POC . 01 Clinical history: . Fetus . 02 Diagnosis: Vaginal specimen: - Products of conception comprised of immature chorionic villi showing focal mild hydropic degenerative changes and segments of decidual tissue showing focal hemorrhage and acute inflammation. (JPM/db; 09/28/2018) LBQ/09/28/2018 . 02 Electronically signed: . Josafat Wagoner MD, Pathologist NPI- [id number] . 01 Gross description: . The specimen is received in formalin, labeled "Alyson Holt, products of conception", is a meehan-marie, spongy, disrupted saccular tissue measuring 7.0 x 4.0 x 1.0 cm. Possible spongy placental tissue is identified, but no discrete parts or grapelike cystic structures are identified. Model Maker Scale tissue is submitted in A1-A3. ([facility]; 09/27/2018) . . . . SHS/SHS . 02 Pathologist provided ICD-10: O02.89 . 02 CPT . 823208 Specimen Comment: A courtesy copy of this report has been sent to Specimen Comment: [phone]. Specimen Comment: Report sent to Performed at: 01 [facility] [address], [place], [place] [id number] MD Best Topete MD Phone: [phone] Performed at: 02 [facility] [address], [place] [id number] MD Josafat Wagoner MD Phone: [phone]
== END 2018-09-26 21:58 | disposition home or self-care (01) ==
LOC: ER 17:16
DX: O20.0 Threatened abortion (principal); O21.9 Vomiting of pregnancy, unspecified; O99.111 Other diseases of the blood and blood-forming organs and certain disorders involving the immune mechanism complicating pregnancy, first trimester; D72.829 Elevated white blood cell count, unspecified; Z3A.00 Weeks of gestation of pregnancy not specified
CPT/HCPCS: 36415; 76801; 80048; 80076; 81001; 83735; 84443; 84702; 84703; 85025; 85610; 85730; 86592; 86703; 86705; 86709; 86803; 86850; 86900; 86901; 87340; 87491; 87591; 96360; 96361; 99285; J7120; Q0111; 87480; 87510; 87660; 88305; J7030

== ENCOUNTER 2018-11-19 11:29 | Emergency (ER) | payer OTHER ==
[~2018-11-19] VITALS: Ht 162.6 cm; Wt 54.4 kg
[2018-11-19 11:29] VITALS: BP 127/83
[2018-11-19] MEDS ORDERED: ONDANSETRON PF 4 MG/2 ML VIAL. ONE (11:37)
[2018-11-19] MEDS ORDERED: ONDANSETRON PF 4 MG/2 ML VIAL. IV ONE (12:00)
[2018-11-19] MEDS ORDERED: IV NORMAL SALINE 1,000ML 1,000 ML IV ONE (12:00)
--- NOTE | 2018-11-19 12:02 | PHYS DOC ---
Past History Past Medical History: No Pertinent History Past Surgical History: No Surgical History Smoking: Non-smoker Alcohol Use: None Drug Use: None Adult General Chief Complaint Chief Complaint: NAUSEA/VOMITING/DIARRHEA HPI HPI Patient is a 23-year-old female presents with lower abdominal pain and nausea and vomiting that began this morning, noted on awakening. Similar symptoms when she's had previous miscarriages, of which she has had 2, with the most recent being September 2018. She denies any vaginal bleeding. Reports that her last menses was approximately 3 weeks ago, and she had a home test that was negative on November 12, 2018. She denies any vaginal bleeding or discharge. She has no past surgical history. Discomfort is moderate to severe in intensity[] Review of Systems Review of Systems Constitutional: Denies fever or chills [] Eyes: Denies change in visual acuity, redness, or eye pain [] HENT: Denies nasal congestion or sore throat [] Respiratory: Denies cough or shortness of breath [] Cardiovascular: No chest pain or palpitations[] GI: See history of present illness, no blood in the emesis, no blood in the stools[] : Denies dysuria or hematuria [] Musculoskeletal: Denies back pain or joint pain [] Integument: Denies rash or skin lesions [] Neurologic: Denies headache, focal weakness or sensory changes [] Endocrine: Denies polyuria or polydipsia [] All other systems were reviewed and found to be within normal limits, except as documented in this note. Current Medications Current Medications Current Medications Medications (Trade) Dose Ordered Sig/[facility] Start Time Stop Time Status Last Admin Dose Admin Ondansetron HCl (Zofran) 4 mg 1X ONCE 11/19/18 12:00 11/19/18 12:01 11/19/18 11:53 4 MG Allergies Allergies Allergies Coded Allergies Type Severity Reaction Last Updated Verified No Known Drug Allergies 05/19/18 No Physical Exam Physical Exam Constitutional: Well developed, well nourished, mild discomfort, non-toxic appearance. [] HENT: Normocephalic, atraumatic, bilateral external ears normal, oropharynx moist, no oral exudates, nose normal. [] Eyes: PERRLA, EOMI, conjunctiva normal, no discharge. [] Neck: Normal range of motion, no tenderness, supple, no stridor. [] Cardiovascular:Heart rate regular rhythm, no murmur [] Lungs & Thorax: Bilateral breath sounds clear to auscultation [] Abdomen: Bowel sounds normal, soft, lower abdominal tenderness, no rebound, no guarding, no rigidity, no masses, no pulsatile masses. [] Skin: Warm, dry, no erythema, no rash. [] Back: No tenderness, no CVA tenderness. [] Extremities: No tenderness, no cyanosis, no clubbing, ROM intact, no edema. [] Neurologic: Alert and oriented X 3, normal motor function, normal sensory function, no focal deficits noted. [] Psychologic: Affect normal, judgement normal, mood normal. [] Current Patient Data Lab Results Laboratory Tests Test 11/19/18 11:43 Glucose (Fingerstick) 119 mg/dL (70-99) H EKG EKG [] Radiology/Procedures Radiology/Procedures PROCEDURE: CT ABD PELV W/ IV CONTRST ONLY CT abdomen pelvis with contrast dated 11/19/2018. Comparison made to 2018. Clinical data indication: Right lower quadrant pain. TECHNIQUE: Contiguous axial imaging of the abdomen and pelvis performed after the intravenous demonstration of 75 cc Omnipaque 300. One or more of the following individualized dose reduction techniques were utilized for this examination: 1. Automated exposure control 2. Adjustment of the mA and/or kV according to patient size 3. Use of iterative reconstruction technique. FINDINGS: Limited images of lung bases are clear. Heart size within normal limits. No pleural or pericardial effusion. Liver, spleen, pancreas, adrenal glands, gallbladder and kidneys are unremarkable. No hydronephrosis. Unopacified GI tract normal in caliber and contour. No focal bowel wall thickening. The appendix is upper limits of normal in caliber measuring 8 mm diameter. There is some high density material in the lumen. No inflammatory changes in the periappendiceal fat. No ascites or lymphadenopathy. Abdominal aorta normal in caliber. Multiple small cystic foci at each ovary. Small amount of free fluid. Uterus is unremarkable. Urinary bladder is nondistended. No pelvic lymphadenopathy. Bone windows show no acute findings. IMPRESSION: 1. No apparent acute abnormality of abdomen. 2. The appendix is upper limits of normal in size and there is likely an appendicolith. No inflammatory changes in the periappendiceal fat. This is likely a normal variant, although early appendicitis cannot be completely excluded. Clinical correlation. 3. Small amount of free pelvic fluid, nonspecific.[] Course & Med Decision Making Course & Med Decision Making Pertinent Labs and Imaging studies reviewed. (See chart for details) ED course: Patient arrived, was placed in bed, and tolerated exam well. She was given IV fluids and antiemetics which significantly improved her symptoms. After was determined that she was not she was given IV NSAIDs which significantly improved her pain. She was transported to and from radiology with any complications. After the return of laboratory and imaging findings, these were discussed with the patient and her partner, both of whom voiced understanding. All questions were answered. He was discharged in improved condition. Medical decision making: Patient with right lower quadrant pain, soft abdomen on exam and able to sit up and lay back with any difficulty. CT scan shows an appendix at the upper limits of normal however there is no inflammation. This may be early appendicitis and discussed that possibility with the patient and family. No evidence of need for admission for surgery at this time. No evidence of intractable nausea or vomiting. No evidence of an ectopic . This may also be mittelschmerz given that her last menses was approximately 2 weeks ago. No evidence of urinary tract infection, pyelonephritis, nor kidney stone. No evidence of obstruction or perforation.[] Dragon Disclaimer Dragon Disclaimer This electronic medical record was generated, in whole or in part, using a voice recognition dictation system. Departure Departure: Impression: Primary Impression: Abdominal pain Additional Impression: Nausea and vomiting Disposition: 01 HOME, SELF-CARE Condition: IMPROVED Referrals: PCP,NO (PCP) Patient Instructions: Abdominal Pain, Nausea and Vomiting Additional Instructions: Drink plenty of fluids, frequent small sips. No fatty foods, no milk, and no pepper for the next 48 hours. For the next 48 hours eat a diet rich in carbohydrates with foods such as bananas, rice, applesauce, and toast. Follow-up with your regular doctor in 2 days. If you do not have regular doctor list of local clinics will be provided for you. Return to the ER if worsening pain, unable to tolerate liquids, or any other concerns. Scripts Ondansetron Hcl (ZOFRAN) 4 Mg Tablet 1 TAB PO Q6HRS for nausea or vomiting, #20 TAB Prov: KATHIE MORATAYA DO 11/19/18 Tramadol Hcl (TRAMADOL HCL) 50 Mg Tablet 50 MG PO PRN Q6HRS PRN for PAIN, #20 TAB Prov: KATHIE MORATAYA DO 11/19/18 Meloxicam (MELOXICAM) 7.5 Mg Tablet 7.5 MG PO DAILY for PAIN, #20 TAB Prov: KATHIE MORATAYA DO 11/19/18 Problem Qualifiers Primary Impression: Abdominal pain Abdominal location: right lower quadrant Qualified Codes: R10.31 - Right lower quadrant pain Additional Impression: Nausea and vomiting Vomiting type: unspecified Vomiting Intractability: non-intractable Qualified Codes: R11.2 - Nausea with vomiting, unspecified KATHIE MORATAYA DO Nov 19, 2018 12:01
[2018-11-19 12:15] LABS: BASO # 0.1 x10^3/uL (0.0-0.2); BASO % 1 % (0-3); EOS # 0.3 x10^3/uL (0.0-0.7); EOS % 3 % (0-3); HEMATOCRIT 42.3 % (36.0-47.0); HEMOGLOBIN 14.3 g/dL (12.0-15.5); LYMPH # 4.6 x10^3/uL (1.0-4.8); LYMPH % 46 % (24-48); MEAN CORPUSCULAR HEMOGLOBIN 29 pg (25-35); MEAN CORPUSCULAR HGB CONC 34 g/dL (31-37); MEAN CORPUSCULAR VOLUME 85 fL (79-100); MONO # 0.9 x10^3/uL (0.0-1.1); MONO % 9 % (0-9); NEUT # 4.1 x10^3uL (1.8-7.7); NEUT % 41 % (31-73); PLATELET COUNT 292 x10^3/uL (140-400); RED BLOOD COUNT 4.98 x10^6/uL (3.50-5.40); RED CELL DISTRIBUTION WIDTH 13.9 % (11.5-14.5); WHITE BLOOD COUNT 9.9 x10^3/uL (4.0-11.0)
[2018-11-19 12:18] LABS: ALBUMIN 3.9 g/dL (3.4-5.0); ALBUMIN/GLOBULIN RATIO 1.4 (1.0-1.7); CALCIUM 9.4 mg/dL (8.5-10.1); CREATININE 0.5 mg/dL (0.6-1.0); GFR 154.3; POTASSIUM 4.2 mmol/L (3.5-5.1); TOTAL BILIRUBIN 0.3 mg/dL (0.2-1.0); TOTAL PROTEIN 6.6 g/dL (6.4-8.2)
[2018-11-19 12:58] LABS: AMPHETAMINE/METHAMPHETAMINE NEG (NEG); BARBITURATES NEG (NEG); BENZODIAZEPINES NEG (NEG); CANNABINOIDS NEG (NEG); COCAINE NEG (NEG); METHADONE NEG (NEG); OPIATES NEG (NEG); PHENCYCLIDINE NEG (NEG)
[2018-11-19] MEDS ORDERED: KETOROLAC 15 MG/ML VIAL. IV ONE (13:00)
[2018-11-19] MEDS ORDERED: IOHEXOL 300 MG/ML 75 ML VIAL. IV ONE (13:00)
[2018-11-19 13:03] LABS: BILIRUBIN,URINE NEG (NEG); CLARITY,URINE HAZY; COLOR,URINE YELLOW; GLUCOSE,URINE NEG (NEG)
[2018-11-19 13:04] LABS: BACTERIA,URINE MANY /HPF (0-FEW); NITRITE,URINE NEG (NEG); RBC,URINE RARE /HPF (0-2); SQUAMOUS EPITHELIAL CELL,UR MANY /LPF; UROBILINOGEN,URINE 0.2 mg/dL (0.2 mg/dL); WBC,URINE RARE /HPF (0-4)
--- NOTE | 2018-11-19 13:42 | RAD ---
CT abdomen pelvis with contrast dated 11/19/2018. Comparison made to 2018. Clinical data indication: Right lower quadrant pain. TECHNIQUE: Contiguous axial imaging of the abdomen and pelvis performed after the intravenous demonstration of 75 cc Omnipaque 300. One or more of the following individualized dose reduction techniques were utilized for this examination: 1. Automated exposure control 2. Adjustment of the mA and/or kV according to patient size 3. Use of iterative reconstruction technique. FINDINGS: Limited images of lung bases are clear. Heart size within normal limits. No pleural or pericardial effusion. Liver, spleen, pancreas, adrenal glands, gallbladder and kidneys are unremarkable. No hydronephrosis. Unopacified GI tract normal in caliber and contour. No focal bowel wall thickening. The appendix is upper limits of normal in caliber measuring 8 mm diameter. There is some high density material in the lumen. No inflammatory changes in the periappendiceal fat. No ascites or lymphadenopathy. Abdominal aorta normal in caliber. Multiple small cystic foci at each ovary. Small amount of free fluid. Uterus is unremarkable. Urinary bladder is nondistended. No pelvic lymphadenopathy. Bone windows show no acute findings. IMPRESSION: 1. No apparent acute abnormality of abdomen. 2. The appendix is upper limits of normal in size and there is likely an appendicolith. No inflammatory changes in the periappendiceal fat. This is likely a normal variant, although early appendicitis cannot be completely excluded. Clinical correlation. 3. Small amount of free pelvic fluid, nonspecific. Electronically signed by: Cy Alvarez MD (11/19/2018 1:39 PM) [facility]
[2018-11-19] MEDS ORDERED: TRAM50TA PO (14:03)
[2018-11-19] MEDS ORDERED: MELO7.5T29 PO (14:03)
[2018-11-19] MEDS ORDERED: ONDA4TAB7 PO (14:03)
== END 2018-11-19 14:00 | disposition home or self-care (01) ==
LOC: ER 11:29
DX: R10.31 Right lower quadrant pain (principal); R11.2 Nausea with vomiting, unspecified
CPT/HCPCS: 36415; 74177; 80053; 80307; 81001; 81025; 82947; 83690; 84702; 85025; 87086; 87491; 87591; 96361; 96374; 96375; 99285; J1885; J2405; Q9967; J7030

== ENCOUNTER 2019-01-17 19:28 | Emergency (ER) | payer OTHER ==
[~2019-01-17 19:28] MED LIST changes: +MELO7.5T29 PO; +ONDA4TAB7 PO; +TRAM50TA PO
[2019-01-17] MEDS ORDERED: IV NORMAL SALINE 500ML 500 ML IV SCH (20:00)
[2019-01-17 20:10] LABS: BASO # 0.1 x10^3/uL (0.0-0.2); BASO % 1 % (0-3); EOS % 0 % (0-3); HEMATOCRIT 41.5 % (36.0-47.0); HEMOGLOBIN 14.1 g/dL (12.0-15.5); LYMPH # 1.7 x10^3/uL (1.0-4.8); LYMPH % 15 % (24-48); MEAN CORPUSCULAR HEMOGLOBIN 29 pg (25-35); MEAN CORPUSCULAR HGB CONC 34 g/dL (31-37); MEAN CORPUSCULAR VOLUME 85 fL (79-100); MONO # 0.7 x10^3/uL (0.0-1.1); MONO % 6 % (0-9); NEUT % 78 % (31-73); PLATELET COUNT 250 x10^3/uL (140-400); RED BLOOD COUNT 4.88 x10^6/uL (3.50-5.40); RED CELL DISTRIBUTION WIDTH 13.2 % (11.5-14.5); WHITE BLOOD COUNT 11.5 x10^3/uL (4.0-11.0)
--- NOTE | 2019-01-17 20:14 | PHYS DOC ---
Past History Past Medical History: No Pertinent History Past Surgical History: No Surgical History Smoking: Non-smoker Alcohol Use: None Drug Use: None Adult General Chief Complaint Chief Complaint: ABDOMINAL PAIN IN HPI HPI Patient is a 23-year-old female patient presents complaining of lower abdominal pain, cramping. It is mild in nature. She started shortly prior to arrival. She notes that she had a positive test and followed up with OB around December 19, 2018 and has had cultures sounds performed subsequent to that. Nothing makes tonight's discomfort any better or worse. There has been no nausea or vomiting. No dysuria. No radiation of the discomfort. She is �0�2�0, 2 previous miscarriages.[] Review of Systems Review of Systems Constitutional: Denies fever or chills [] Eyes: Denies change in visual acuity, redness, or eye pain [] HENT: Denies nasal congestion or sore throat [] Respiratory: Denies cough or shortness of breath [] Cardiovascular: No chest pain or palpitations[] GI: See history of present illness[] : Denies dysuria or hematuria, see history of present illness [] Musculoskeletal: Denies back pain or joint pain [] Integument: Denies rash or skin lesions [] Neurologic: Denies headache, focal weakness or sensory changes [] Endocrine: Denies polyuria or polydipsia [] All other systems were reviewed and found to be within normal limits, except as documented in this note. Current Medications Current Medications Current Medications Medications (Trade) Dose Ordered Sig/Hermes Start Time Stop Time Status Last Admin Dose Admin Sodium Chloride 500 ml @ 500 mls/hr Q1H 01/17/19 20:00 Allergies Allergies Allergies Coded Allergies Type Severity Reaction Last Updated Verified No Known Drug Allergies 05/19/18 No Physical Exam Physical Exam Constitutional: Well developed, well nourished, no acute distress, non-toxic appearance. [] HENT: Normocephalic, atraumatic, bilateral external ears normal, oropharynx moist, no oral exudates, nose normal. [] Eyes: PERRLA, EOMI, conjunctiva normal, no discharge. [] Neck: Normal range of motion, no tenderness, supple, no stridor. [] Cardiovascular:Heart rate regular rhythm, no murmur [] Lungs & Thorax: Bilateral breath sounds clear to auscultation [] Abdomen: Bowel sounds normal, soft, lower abdominal/suprapubic tenderness, no rebound, no guarding, no rigidity, able to sit up without any difficulty, no masses, no pulsatile masses. Pelvic exam performed with police surgeon: External genitalia, Butler's, and Bartholin's glands: No external lesions, no rash. Vaginal vault: Mild discharge in vault, no bleeding. Cervix: Nulliparous os, no cervical motion tenderness, closed cervix, no blood [] Skin: Warm, dry, no erythema, no rash. [] Back: No tenderness, no CVA tenderness. [] Extremities: No tenderness, no cyanosis, no clubbing, ROM intact, no edema. [] Neurologic: Alert and oriented X 3, normal motor function, normal sensory function, no focal deficits noted. [] Psychologic: Affect normal, judgement normal, mood normal. [] Current Patient Data Vital Signs Vital Signs Date Time Temp Pulse Resp B/P (MAP) Pulse Ox O2 Delivery O2 Flow Rate FiO2 01/17/19 19:30 98.5 102 16 99 Room Air Lab Results Laboratory Tests Test 01/17/19 20:04 POC Urine HCG, Qualitative hcg positive (Negative) EKG EKG [] Radiology/Procedures Radiology/Procedures PROCEDURE: OB <14 WKS STUDY: Obstetrical ultrasound less than 14 weeks COMPARISON: 09/26/2018 INDICATION: Known with lower abdominal pain. TECHNIQUE: Real-time transabdominal sonographic evaluation of the pelvis utilizing grayscale and color Doppler technique. FINDINGS: The cervix is closed and measures 3.8 cm in length. The uterus measures 13.1 x 7.7 x 6.5 cm. Within the right lateral aspect of the uterine body, rounded avascular structure measuring 3.4 x 2.9 x 3.3 cm is identified and is most compatible with a fibroid. An additional fibroid may be present along the left aspect of the uterine body and measures similar in size. Intrauterine gestational sac containing a single pole with a measured crown-rump length of 3.74 cm corresponding to an estimated gestational age of 10 weeks 4 days. heart rate measures 175 bpm. The right ovary measures 4.6 x 3.5 x 2.9 cm. The left ovary measures 2.1 x 2.1 x 1.7 cm. Normal Doppler flow to both ovaries. Heterogeneous structure at the right ovary is most compatible with a corpus luteum cyst measuring 2.8 x 2.7 x 2.8 cm. No free fluid seen within the pelvis. IMPRESSION: 1. Single live intrauterine with a crown-rump length corresponding to an estimated gestational age of 10 weeks 4 days. No complicating features identified. 2. Corpus luteum cyst seen on the right. Normal Doppler flow to both ovaries. No free fluid within the deep pelvis. 3. Rounded foci within the right and left aspect of the uterine body suggestive of uterine fibroids measuring on the right approximately 3.4 x 2.9 x 3.3 cm. The suspected left uterine body fibroid measures similar.[] Course & Med Decision Making Course & Med Decision Making Pertinent Labs and Imaging studies reviewed. (See chart for details) ED course: Patient arrived, was placed in bed, and tolerated exam well. She was transported to and from [facility] with any complications. After the return of laboratory and imaging findings, these were discussed with the patient who voiced understanding. All questions were answered. She was discharged in improved condition Medical decision making: There is no evidence of an ectopic , no evidence of a heterotopic , no evidence of ovarian torsion, no evidence of urinary tract infection nor starvation state. No evidence of any intra-abdominal surgical pathology at this time. No evidence of Rh mismatch.[] Dragon Disclaimer Dragon Disclaimer This electronic medical record was generated, in whole or in part, using a voice recognition dictation system. Departure Departure: Impression: Primary Impression: Abdominal pain affecting Disposition: 01 HOME, SELF-CARE Condition: IMPROVED Referrals: PCP,UNKNOWN (PCP) Patient Instructions: Abdominal Pain During Additional Instructions: Follow-up with your [facility] [facility] tomorrow. Return to the ER if worsening pain, unable to tolerate liquids, or any other concerns. Scripts Acetaminophen (TYLENOL) 325 Mg Tablet 1-2 TAB PO QID for PAIN, #60 TAB 0 Refills Prov: KATHIE MORATAYA DO 01/17/19 Metoclopramide Hcl (REGLAN) 10 Mg Tablet 10 MG PO QID for nausea and vomiting, #30 TAB Prov: KATHIE MORATAYA DO 01/17/19 KATHIE MORATAYA DO Jan 17, 2019 20:14
[2019-01-17 20:18] LABS: BILIRUBIN,URINE NEG (NEG); CLARITY,URINE CLOUDY; COLOR,URINE YELLOW; GLUCOSE,URINE NEG (NEG); NITRITE,URINE NEG (NEG); RBC,URINE 0 /HPF (0-2); UROBILINOGEN,URINE 0.2 mg/dL (0.2 mg/dL)
[2019-01-17 20:19] LABS: AMORPHOUS SEDIMENT,UR PRESENT /HPF; BACTERIA,URINE FEW /HPF (0-FEW); SQUAMOUS EPITHELIAL CELL,UR MOD /LPF; WBC,URINE RARE /HPF (0-4)
[2019-01-17 20:23] LABS: ALBUMIN 3.6 g/dL (3.4-5.0); ALBUMIN/GLOBULIN RATIO 1.2 (1.0-1.7); CALCIUM 8.8 mg/dL (8.5-10.1); CREATININE 0.5 mg/dL (0.6-1.0); GFR 154.3; POTASSIUM 3.7 mmol/L (3.5-5.1); TOTAL BILIRUBIN 0.2 mg/dL (0.2-1.0); TOTAL PROTEIN 6.5 g/dL (6.4-8.2)
--- NOTE | 2019-01-17 21:24 | RAD ---
STUDY: Obstetrical ultrasound less than 14 weeks COMPARISON: 09/26/2018 INDICATION: Known with lower abdominal pain. TECHNIQUE: Real-time transabdominal sonographic evaluation of the pelvis utilizing grayscale and color Doppler technique. FINDINGS: The cervix is closed and measures 3.8 cm in length. The uterus measures 13.1 x 7.7 x 6.5 cm. Within the right lateral aspect of the uterine body, rounded avascular structure measuring 3.4 x 2.9 x 3.3 cm is identified and is most compatible with a fibroid. An additional fibroid may be present along the left aspect of the uterine body and measures similar in size. Intrauterine gestational sac containing a single pole with a measured crown-rump length of 3.74 cm corresponding to an estimated gestational age of 10 weeks 4 days. heart rate measures 175 bpm. The right ovary measures 4.6 x 3.5 x 2.9 cm. The left ovary measures 2.1 x 2.1 x 1.7 cm. Normal Doppler flow to both ovaries. Heterogeneous structure at the right ovary is most compatible with a corpus luteum cyst measuring 2.8 x 2.7 x 2.8 cm. No free fluid seen within the pelvis. IMPRESSION: 1. Single live intrauterine with a crown-rump length corresponding to an estimated gestational age of 10 weeks 4 days. No complicating features identified. 2. Corpus luteum cyst seen on the right. Normal Doppler flow to both ovaries. No free fluid within the deep pelvis. 3. Rounded foci within the right and left aspect of the uterine body suggestive of uterine fibroids measuring on the right approximately 3.4 x 2.9 x 3.3 cm. The suspected left uterine body fibroid measures similar. Electronically signed by: JAMSE SAAVEDRA MD (01/17/2019 9:21 PM) [facility]
[2019-01-17] MEDS ORDERED: ACET325T9 PO (21:43)
[2019-01-17] MEDS ORDERED: METO10TA81 PO (21:43)
[2019-01-17 21:45] VITALS: BP 105/66
== END 2019-01-17 21:53 | disposition home or self-care (01) ==
LOC: ER 19:28
DX: O26.891 Other specified pregnancy related conditions, first trimester (principal); R10.30 Lower abdominal pain, unspecified; Z3A.10 10 weeks gestation of pregnancy
CPT/HCPCS: 36415; 76801; 80053; 81001; 81025; 84702; 85025; 86900; 86901; 87086; 99285; J7040; Q0111